=== PATIENT | male | born 1985 | race Caucasian/White ===

== ENCOUNTER 2017-10-03 22:15 | Emergency (ER) | payer MEDICAID ==
[~2017-10-03] VITALS: Ht 165.1 cm; Wt 84.4 kg
[2017-10-03 22:23] VITALS: Ht 165.1 cm; Wt 84.4 kg
[2017-10-03 23:31] LABS: BASOPHIL % 1.4 % (0-2); PLATELET COUNT 233 x10^3mcL (130-400); RED CELL DISTRIBUTION WIDTH 13.8 % (11.5-14.5)
[2017-10-03 23:51] LABS: CALCIUM 8.4 mg/dL (8.5-10.1); CARBON DIOXIDE 28.1 mmol/L (21-32); CHLORIDE SERUM 103 mmol/L (98-107); CREATININE SERUM 0.9 mg/dL (0.7-1.3); GFR1 > 60 mL/min; GLUCOSE SERUM 104 mg/dL (74-106); POTASSIUM SERUM 3.6 mmol/L (3.5-5.1); SODIUM SERUM 137 mmol/L (136-145)
[2017-10-03 23:55] LABS: ALBUMIN 3.7 g/dL (3.4-5.0); ALKALINE PHOSPHATASE 76 U/L (46-116); ALT/SGPT 35 U/L (16-63); AMYLASE 64 U/L (25-115); AST/SGOT 17 U/L (15-37); BILIRUBIN TOTAL 0.8 mg/dL (0.20-1.00); LIPASE 121 IU/L (73-393); TOTAL PROTEIN, SERUM 7.3 g/dL (6.4-8.2)
[2017-10-04 01:17] LABS: AMPHETAMINE QUAL UR NONE DETECTED (NEG <=1000)
[2017-10-04 01:44] VITALS: BP 140/82
== END 2017-10-04 01:44 | disposition home or self-care (01) ==
LOC: ED 22:15
PROVIDERS: Emergency Medicine
DX: R07.9 Chest pain, unspecified (principal)
CPT/HCPCS: 36415; 83880; Q0092